=== PATIENT | male | born 1980 | race African-American/Black ===

== ENCOUNTER 2020-06-03 10:03 | Observation (INO) ==
[2020-06-03] MEDS ORDERED: ACETAMINOPHEN 325 MG TABLET PO PRN (15:06)
[2020-06-03] MEDS ORDERED: BISACODYL 5 MG TABLET PO PRN (15:06)
[2020-06-03] MEDS ORDERED: ONDANSETRON 4 MG/2 ML VIAL IV PRN (15:06)
[2020-06-03] MEDS ORDERED: ALBUTEROL/IPRATROPIUM 3 ML NEB RESP TX PRN (15:06)
[2020-06-03 15:48] LABS: Basophils % 0.2 % (0.0-0.8); Eosinophils # 0.1 10*3/uL (0.0-0.87); Eosinophils % 0.9 % (0.00-10.9); Hematocrit 41.5 VOL% (42.0-52.0); Hemoglobin 13.1 GM/DL (14.0-18.0); Immature Granulocytes % 0.4 %; Immature Granulocytes Absolute 0.04 #; Lymphocytes # 2.2 10*3/uL (1.4-4.0); Lymphocytes % 20.2 % (21.2-54.2); Mean Corpuscular HGB Conc 31.6 GM/DL (32-36); Mean Platelet Volume 8.6 FL (9.6-12.0); Monocytes % 9.6 % (1.7-12.7); Neutrophils % 68.7 % (38.7-73.9); Platelet Count 248 T/CUMM (130-400); Red Blood Count 4.28 MC/CUMM (3.8-5.5); White Blood Count 10.8 T/CUMM (4-12)
[2020-06-03 16:06] LABS: Albumin 3.8 G/DL (3.4-5.0); Bilirubin,Total 0.9 MG/DL (0.2-1.0); Calcium 8.7 MG/DL (8.5-10.1); Total Protein 7.4 G/DL (6.4-8.3)
[2020-06-03] MEDS: PIPERACILLIN/TAZOBACTAM 3,375 MG in SODIUM CHLORIDE 0.9% 100 ML IV SCH (17:35)
[2020-06-03] MEDS: KETOROLAC 15 MG/1 ML VIAL IV PRN (21:39)
[2020-06-04] MEDS: HYDROmorphone 2 MG/1 ML VIAL IV PRN ×2 (00:56→21:07)
[2020-06-04] MEDS: PIPERACILLIN/TAZOBACTAM 3,375 MG in SODIUM CHLORIDE 0.9% 100 ML IV SCH ×3 (02:26→17:14)
[2020-06-04] MEDS: PANTOPRAZOLE 40 MG TABLET PO SCH (09:01)
[2020-06-04] MEDS: KETOROLAC 15 MG/1 ML VIAL IV PRN (09:01)
[2020-06-04] MEDS ORDERED: KETOROLAC 30 MG/1 ML VIAL ONE (10:52)
[2020-06-04] MEDS ORDERED: LIDOCAINE 2% 5 ML VIAL ONE (10:52)
[2020-06-04] MEDS ORDERED: ONDANSETRON 4 MG/2 ML VIAL ONE (10:52)
[2020-06-04] MEDS ORDERED: propofoL 200 MG/20 ML VIAL IV ONE (10:52)
[2020-06-04] MEDS ORDERED: DEXAMETHASONE 4 MG/1 ML VIAL ONE ×2 (10:52→11:10)
[2020-06-04] MEDS ORDERED: MIDAZOLAM 2 MG/2 ML VIAL ONE (10:53)
[2020-06-04] MEDS ORDERED: fentaNYL 100 MCG/2 ML VIAL ONE (10:53)
[2020-06-04] MEDS ORDERED: LIDOCAINE 1% 20 ML VIAL ONE (11:09)
[2020-06-04] MEDS ORDERED: BUPIVACAINE MPF 0.25% 30 ML VIAL ONE (11:09)
[2020-06-04] MEDS ORDERED: PHENYLEPHRINE 1 MG/10 ML SYRINGE IV ONE (11:21)
[2020-06-05] MEDS: PIPERACILLIN/TAZOBACTAM 3,375 MG in SODIUM CHLORIDE 0.9% 100 ML IV SCH ×3 (03:06→11:29)
[2020-06-05] MEDS: PANTOPRAZOLE 40 MG TABLET PO SCH (09:47)
[2020-06-05 12:09] VITALS: BP 127/78
== END 2020-06-05 12:58 | disposition home or self-care (01) ==
LOC: N.ED 10:03 → N.EDINP 10:03 → N.5E 17:12
PROVIDERS: ADMIT Surgery; ATTEND Surgery